=== PATIENT | female | born 1980 | race Caucasian/White ===

== ENCOUNTER → 2020-03-13 11:29 | Outpatient (CLI) | payer BC ==
[2016-04-15 05:51] VITALS: BMI 23.2
[~2020-03-13 11:29] MED LIST: HYDROCODONE-APA1 TAB PO; MULTIPLE VITAMI1 TA1 PO; PROBIOTIC1 EAC1 PO; VENTOLIN HFA18 GM INH
== END | disposition home or self-care (01) ==
LOC: D.US 11:29
PROVIDERS: ATTEND Family Medicine
DX: M79.605 Pain in left leg (principal)

== ENCOUNTER → 2020-09-04 09:16 | Outpatient (CLI) | payer BC ==
[2016-04-15 05:51] VITALS: BMI 23.2
== END | disposition home or self-care (01) ==
LOC: D.CT 09:16
PROVIDERS: ATTEND Internal Medicine Gastroenterology
DX: R10.84 Generalized abdominal pain (principal)